=== PATIENT | female | born 1955 | race Caucasian/White ===

== ENCOUNTER → 2017-04-13 | Outpatient (CLI) | payer BC ==
[~2017-04-13] MED LIST: DIOV40TA PO; MIDAZOLAM HCL 2 MG/2 ML VIAL ONE; MOME30SO TOP; VIBR50SY PO
[2017-04-13 13:48] LABS: AUTOMATED NEUTROPHIL # 5.5 TH/MM3 (1.8-7.7); BASOPHIL % 0.6 % (0.0-2.0); EOSINOPHIL # 0.1 TH/MM3 (0-0.4); EOSINOPHIL % 0.8 % (0.0-4.0); HEMATOCRIT 41.1 % (35.0-46.0); HEMOGLOBIN 13.8 GM/DL (11.6-15.3); LYMPH % 24.9 % (9.0-44.0); MEAN CELL VOLUME 91.8 FL (80.0-100.0); MEAN CORPUSCULAR HEMOGLOBIN 30.8 PG (27.0-34.0); MEAN CORPUSCULAR HGB CONC 33.6 % (32.0-36.0); MEAN PLATELET VOLUME 8.6 FL (7.0-11.0); MONO % 6.4 % (0.0-8.0); MONOCYTE # 0.5 TH/MM3 (0-0.9); NEUT % 67.3 % (16.0-70.0); PLATELET COUNT 291 TH/MM3 (150-450); RED BLOOD COUNT 4.48 MIL/MM3 (4.00-5.30); RED CELL DISTRIBUTION WIDTH 13.5 % (11.6-17.2); WHITE BLOOD COUNT 8.1 TH/MM3 (4.0-11.0)
[2017-04-13 13:59] LABS: BICARBONATE 30.1 MEQ/L (21.0-32.0); CALCIUM 9.2 MG/DL (8.5-10.1); CREATININE 0.83 MG/DL (0.50-1.00)
[2017-04-13 14:03] LABS: BACTERIA, URINE RARE /hpf; BILIRUBIN, URINE NEG (NEG); BLOOD, URINE NEG (NEG); GLUCOSE,URINE NEG (NEG); HYALINE CAST, URINE 1 /lpf (RARE); KETONE, URINE 10 mg/dL (NEG); MUCUS URINE FEW /lpf (OCC); NITRITE,URINE NEG (NEG); PH, URINE 5.5 (5.0-8.5); SQUAMOUS EPITHELIAL CELL URINE <1 /hpf (0-5); URINE COLOR YELLOW (YELLW/STRAW); URINE LEUKOCYTE ESTERASE TRACE (NEG)
--- NOTE | 2017-04-14 18:24 | EKG ---
Date Performed: 04/13/2017 Time Performed: 13:25:57 PTAGE: 61 years EKG: Sinus rhythm MINIMAL ST DEPRESSION BORDERLINE ECG NO PREVIOUS TRACING DOCTOR: Tyra Martínez Interpretating Date/Time 04/14/2017 18:20:26
== END ==
LOC: CPRE 13:04
PROVIDERS: ATTEND Obstetrics & Gynecology
DX: Z01.810 Encounter for preprocedural cardiovascular examination (principal); Z01.812 Encounter for preprocedural laboratory examination; N81.3 Complete uterovaginal prolapse; N81.10 Cystocele, unspecified; N81.6 Rectocele
CPT/HCPCS: 36415; 80048; 81001; 85025; 93005

== ENCOUNTER 2017-04-15 12:24 | Observation (INO) | payer BC ==
--- NOTE | 2017-04-14 11:38 | MH ---
cc: KARINA DAIGLE M.D. DATE OF ADMISSION: 04/15/2017 ADMITTING DIAGNOSIS: Uterine prolapse third-degree with cystocele. HISTORY OF PRESENT ILLNESS The patient is 61-year-old white female para 2-0-0-2 who returned for evaluation on 12/15/2016 with sudden loss of tissue per vagina over the previous week. Exam confirmed the complete prolapse. Her Pap smear that day was normal. Her vaginal ultrasound from 12/22/2016 showed a small uterus measuring 4.3 cm right ovary, normal left could not be seen. Her mammogram was normal. She is now admitted for surgical repair. PAST MEDICAL HISTORY She had a hysteroscopy and D&C in 2000. MEDICATIONS: Her medications are none. ALLERGIES None. TRANSFUSIONS None. OBSTETRICAL HISTORY Two vaginal deliveries. SOCIAL HISTORY She is , homemaker, alcohol occasional, tobacco none. Drugs none. FAMILY HISTORY: Noncontributory PHYSICAL EXAMINATION: Well-nourished, well-developed, white female. VITAL SIGNS: Stable. HEAD, EYES, EARS, NOSE, AND THROAT: Exam is normal. CHEST: Chest is clear. HEART: Regular rate. BREASTS: The breasts are symmetrical. ABDOMEN: Benign. GYNECOLOGY: Pelvic exam reveals severe third-degree prolapse with cystocele and rectocele. Uterus was normal size shape. Adnexa nonpalpable. ASSESSMENT: As above. PLAN: She is now admitted for a planned LAVH BSO, AP repair, possible KAELA-BSO, AP repair. While in the office I have explained the procedures, the risks and complications with recurrent prolapse. Patient would like to proceed. MD GASTON Willson/damien /8:46 AM /8:53 AM
[~2017-04-15] VITALS: Ht 167.6 cm; Wt 75.7 kg
[~2017-04-15 12:24] MED LIST changes: +DEXAMETHASONE SOD PHOS 4 MG/ML VIAL IV ONE; -DIOV40TA PO; +ESMOLOL HCL 100 MG/10 ML VIAL IV ONE; +GLYCOPYRROLATE 1 MG/5 ML SYRINGE IV PUSH ONE; +KETOROLAC TROMETHAMINE 30 MG/ML (IVP) VIAL IV PUSH ONE; +LACTATED RINGER'S 1000 ML INJ 1,000 ML IV ONE; +LIDOCAINE HCL 1% PF 5 ML SYRINGE OTHER ONE; -MIDAZOLAM HCL 2 MG/2 ML VIAL ONE; -MOME30SO TOP; +NEOSTIGMINE 5 MG/5 ML SYRINGE IV PUSH ONE; +ONDANSETRON HCL 4 MG/2 ML VIAL IV ONE; +PROPOFOL 200 MG/20 ML AMP IV ONE; +ROCURONIUM INJ 50 MG/5 ML SYRINGE IV PUSH ONE; -VIBR50SY PO
[2017-04-15] MEDS ORDERED: ACETAMINOPHEN 1000 MG/100 ML 100 ML IV SCH (13:00)
[2017-04-15] MEDS ORDERED: METOPROLOL TARTRATE 25 MG TAB PO PRN (13:00)
[2017-04-15] MEDS ORDERED: POVIDONE IODINE 5% (ANTISEPSIS KIT) 4 APPLICATIONS EACH NARE PRN (13:00)
[2017-04-15] MEDS ORDERED: SODIUM CHLORID 0.9% 500 ML IV PRN (13:00)
[2017-04-15] MEDS ORDERED: CHLORHEXIDINE GLUCONATE 2 % 1 PACK (2 CLOTHS) TOPICAL PRN (13:00)
[2017-04-15] MEDS ORDERED: LACTATED RINGER'S 1000 ML IV PRN (13:00)
[2017-04-15] MEDS ORDERED: ceFAZolin 2 GM PREMIX 50 ML IV SCH (13:30)
[2017-04-15] MEDS ORDERED: BUPIVACAINE/EPINEPHRINE 0.5% PF 30 ML VIAL ONE (15:23)
[2017-04-15] MEDS ORDERED: ESTROGENS CONJUGATED VAG CREA 15 APPL/30 GM TUBE ONE (17:32)
[2017-04-15] MEDS ORDERED: HYDROmorphone HCL PF 1 MG/ML VIAL IV PUSH PRN (17:45)
[2017-04-15] MEDS ORDERED: ZOLPIDEM TARTRATE 5 MG TAB PO PRN (17:45)
[2017-04-15] MEDS ORDERED: PROMETHAZINE INJ 25 MG/ML VIAL IM PRN (17:45)
[2017-04-15] MEDS ORDERED: diphenhydrAMINE HCL 25 MG CAP PO PRN (17:45)
[2017-04-15] MEDS ORDERED: ONDANSETRON HCL 4 MG/2 ML VIAL IV PUSH PRN (17:45)
[2017-04-15] MEDS ORDERED: DO NOT ADM ANY ANTICOAGULANT DRUGS PRN (18:05)
[2017-04-15 19:03] LABS: HEMATOCRIT 38.6 % (35.0-46.0); HEMOGLOBIN 12.8 GM/DL (11.6-15.3)
[2017-04-15] MEDS ORDERED: ONDANSETRON HCL 4 MG/2 ML VIAL IV PRN (19:15)
[2017-04-15] MEDS: D5-1/2 NS + KCL 20 MEQ INJ 1,000 ML IV SCH (19:17)
[2017-04-15] MEDS: KETOROLAC TROMETHAMINE 30 MG/ML (IVP) VIAL IVP SCH (19:30)
[2017-04-15 20:00] VITALS: BP 135/79; PULSE 71; RESP 18; TEMP 98.2; O2SAT 96
[2017-04-15] MEDS: ACETAMINOPHEN 1000 MG/100 ML VIAL IV SCH (21:02)
[2017-04-15] MEDS: DOCUSATE SODIUM 100 MG CAP PO SCH (21:02)
[2017-04-16] VITALS: BP 128/73; PULSE 86; RESP 16; TEMP 97.8; O2SAT 97
[2017-04-16] MEDS: KETOROLAC TROMETHAMINE 30 MG/ML (IVP) VIAL IVP SCH ×2 (01:52→08:04)
[2017-04-16] MEDS: D5-1/2 NS + KCL 20 MEQ INJ 1,000 ML IV SCH (01:53)
[2017-04-16] MEDS: ACETAMINOPHEN 1000 MG/100 ML VIAL IV SCH ×2 (04:00→12:09)
[2017-04-16 05:00] VITALS: BP 113/69; PULSE 76; RESP 16; TEMP 97.9; O2SAT 97
[2017-04-16 05:58] LABS: BASOPHIL % 0.3 % (0.0-2.0); EOSINOPHIL % 0.1 % (0.0-4.0); HEMATOCRIT 36.7 % (35.0-46.0); HEMOGLOBIN 12.3 GM/DL (11.6-15.3); LYMPH % 13.4 % (9.0-44.0); LYMPHOCYTE # 1.5 TH/MM3 (1.0-4.8); MEAN CELL VOLUME 91.1 FL (80.0-100.0); MEAN CORPUSCULAR HEMOGLOBIN 30.6 PG (27.0-34.0); MEAN CORPUSCULAR HGB CONC 33.5 % (32.0-36.0); MEAN PLATELET VOLUME 8.5 FL (7.0-11.0); MONO % 6.2 % (0.0-8.0); MONOCYTE # 0.7 TH/MM3 (0-0.9); PLATELET COUNT 232 TH/MM3 (150-450); RED BLOOD COUNT 4.03 MIL/MM3 (4.00-5.30); RED CELL DISTRIBUTION WIDTH 13.5 % (11.6-17.2); WHITE BLOOD COUNT 11.2 TH/MM3 (4.0-11.0)
[2017-04-16 06:22] LABS: BICARBONATE 28.2 MEQ/L (21.0-32.0); CALCIUM 7.8 MG/DL (8.5-10.1); CREATININE 0.66 MG/DL (0.50-1.00)
[2017-04-16 08:00] VITALS: BP 117/73; PULSE 76; RESP 16; TEMP 98.6; O2SAT 98
--- NOTE | 2017-04-16 08:54 | MP ---
cc: KARINA DAIGLE MD DATE OF SURGERY: 04/15/2017 PREOPERATIVE DIAGNOSIS Uterine prolapse, third-degree with cystocele and rectocele. POSTOPERATIVE DIAGNOSIS Uterine prolapse, third-degree with cystocele and rectocele. PROCEDURE PERFORMED LAVH, BSO, anterior-posterior repair. ANESTHESIA General ET. SURGEON Karina Daigle MD KNIFEMAN Berna Barakat. ESTIMATED BLOOD LOSS 100 ccs. FLUIDS 1 liter of crystalloid. OBJECTIVE FINDINGS Following induction of adequate general endotracheal anesthesia, the patient was prepped and draped supine on the operating table in the dorsal lithotomy position in the usual sterile fashion with the bladder being drained via Austin catheterization. The abdomen was opened through a 1/2 cm supraumbilical incision and a 5 port was placed followed by laparoscope attached to video cam and a second 5 was placed in the left lower quadrant and third in the right. The pelvic contents revealed normal uterus, tubes, ovaries, normal cul-de-sacs, normal liver edge. Working first on the left the harmonic scalpel was used to take the left ovarian pedicle, left round ligament, left broad ligament and left-side of the bladder flap and uterine vessels, same on the right. The scope was now removed and blankbook stitching machine operator's attention directed to the vagina. The uterus prolapsed through the vaginal introitus and Auvard retractor was placed. The cervix was held with a Bill clamp and the vaginal mucosa was scored circumferentially on the cervix with the Bovie and then the bladder was pushed off anteriorly. A thin retractor was inserted to elevate the bladder for the remainder of the case and the blankbook stitching machine operator's finger was used to identify the posterior cul-de-sac which was opened sharply. The left uterosacral was taken with a Mack clamp, cut and ligated with 0-Vicryl Mack fashion and the right uterosacral and the right cardinal, left cardinal and the right and left uterines in the same fashion. This allowed delivery of the cervix, uterus, tubes and ovaries through the vaginal vault for permanent study. Areas of bleeding on the right side of the cuff controlled with stitches of 0-Vicryl. The posterior peritoneum was run to the posterior cuff with a running locking stitch of 0-Vicryl. The peritoneum was closed with pursestring sutures of 0-Vicryl. Vaginal cuff was undermined over the cystocele and urethrocele using Allis clamps for retraction, Metzenbaum scissors for dissection. We now mobilized the UV junction and plicate with a 2-0 Vicryl stitch in Naya fashion. Additional sutures were placed to elevate the cystocele and the urethrocele. A second layer was placed at the UV junction and the excess anterior vaginal mucosa was trimmed. The anterior vaginal wall was closed with interrupted sutures of 2-0 Vicryl in [id number] fashion. The corners of the vaginal cuff were then closed and suspended to each uterosacral ligament with a 0-Vicryl stitch interrupted and the cuff was closed front to back with 0-vicryl suture interrupted. The perineum was now opened, excised and a siomara shaped wedge of scar tissue, vaginal mucosa undermined over the rectocele to the top of the cuff. Vaginal mucosa was from underlying perirectal fascia. periRectal fascia was closed with running stitch of 2-0 Vicryl. Excess posterior vaginal mucosa was trimmed and the posterior vaginal wall closed with running locking stitch of 2-0 Vicryl. The perineum was reapproximated with 2-0 Vicryl interrupted and a running 2-0 Vicryl. Inspection revealed good support with no bleeding. The vagina was packed with 2-inch gauze moistened with Premarin cream. Rectal exam was normal. All the vaginal instruments were removed. The blankbook stitching machine operator's gloves were changed. Laparoscope was reinserted and the operative site was inspected, there is no bleeding. Both ureters were inspected with good peristalsis. Scope was now removed. Three ports were injected with a total of 10 ccs of Marcaine 0.5% with epinephrine and closed with 3-0 Monocryl interrupted. Dermabond was applied. All counts were correct. The patient's legs were taken down from the stirrups. She was awakened and taken to the recovery room in good condition. MD GASTON Willson/DUSTIN /5:47 PM /8:11 AM DURAN
[2017-04-16] MEDS: DOCUSATE SODIUM 100 MG CAP PO SCH (12:10)
[2017-04-16] MEDS ORDERED: MIDAZOLAM HCL 2 MG/2 ML VIAL ONE (13:37)
== END 2017-04-16 13:48 | disposition home or self-care (01) ==
LOC: HSDC 12:24 → HSDI 18:52 → H1EA 19:23
PROVIDERS: ADMIT Obstetrics & Gynecology; ATTEND Obstetrics & Gynecology
DX: N81.3 Complete uterovaginal prolapse (principal); N72 Inflammatory disease of cervix uteri; D25.9 Leiomyoma of uterus, unspecified; N85.8 Other specified noninflammatory disorders of uterus
CPT/HCPCS: 00840; 57260; 58552; 80048; 85014; 85018; 85025; 88302; 88307; 94150; 96365; 96366; 96375; 96376; G0378; J0131; J0690; J1100; J1885; J2250; J2405; J2710; J3010; J3480; J7120